=== PATIENT | male | born 1980 | race Asian ===

== ENCOUNTER 2018-07-24 07:44 | Emergency (ER) | payer SELFPAY ==
[2018-07-24 08:05] VITALS: BMI 30.4
--- NOTE | 2018-07-24 08:18 | PDOC ---
History of Present Illness <ElainaMiya - Last Filed: 07/24/18 11:34> - History of Present Illness Initial Comments: 07/24/18 10:13 This patient is a 37 year old male, with PMHx of seasonal asthma, who presents to the ED with his father for psychiatric evaluation. Patient states that he recently moved from the [facility] to [place] in March 2018. 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 He states that he has been having a hard time adjusting at work due to the culture shock. Pt is guarded and very evasive when asked what has been difficult for him. He admits that he often feels other people, especially at work, are trying to harm him. When speaking with patient s father (Dilip [phone]) he states that his son feels people are trying to harm him. Patient denies any plan to hurt himself or others however. Patients father states that prior to moving to [facility], his son lived alone and was perfectly fine in the [facility]. Patient is currently living with his coworkers brother. His coworker (Vasile [phone]) notes that the pt has been having some issues at work. He states that the pt constantly repeats I cant do this while at work and claims that no one understands him. He also was paranoid that a certain long distance billing operator at work was trying to harm him while they were alone in the elevator. He also states that the patient is very paranoid while on the train. He reports an episode where the pt's supervisor food checkers and cashiers handed him a timesheet to fill out and the patient repeated "I can't do this" and began to weep at work. His coworker also notes that the patient is often fixated on the other physical therapists patients, notably kept repeating a concern about a patients shoes to a coworker. His coworker states that the pt has not mentioned any plans to kill himself but he is worried that he may eventually do something based on the unusual behavior he has been exhibiting. He denies fevers, chills, cp, sob, headaches, visual issues, weakness/numbness, abd pain, LE edema, urinary sxs, stiff neck, rashes. Denies recent EtOH use of recreational drugs. <Sudheer Gastelum - Last Filed: 07/24/18 18:56> - General Chief Complaint: Suicidal Stated Complaint: Psychiatric Time Seen by Provider: 07/24/18 08:17 Past History <Miya Delaney - Last Filed: 07/24/18 11:34> - Past Medical History Asthma: Yes COPD: No - Surgical History Appendectomy: No Cardiac Surgery: No - Suicide/Smoking/Psychosocial Hx Smoking History: Never smoked Have you smoked in the past 12 months: No Information on smoking cessation initiated: No Hx Alcohol Use: No Drug/Substance Use Hx: No Substance Use Type: None <Sudheer Gastelum - Last Filed: 07/24/18 18:56> - Past Medical History Allergies/Adverse Reactions: Allergies Allergy/AdvReac Type Severity Reaction Status Date / Time No Known Allergies Allergy Verified 07/24/18 07:49 Home Medications: Ambulatory Orders NK [No Known Home Medication] 07/24/18 Review of Systems - Review of Systems Comments:: 07/24/18 10:22 GENERAL/CONSTITUTIONAL: No fever or chills. No weakness. HEAD, EYES, EARS, NOSE AND THROAT: No change in vision. No ear pain or discharge. No sore throat. GASTROINTESTINAL: No nausea, vomiting, diarrhea or constipation. GENITOURINARY: No dysuria, frequency, or change in urination. CARDIOVASCULAR: No chest pain or shortness of breath. RESPIRATORY: No cough, or hemoptysis. MUSCULOSKELETAL: No joint or muscle swelling or pain. No neck or back pain. SKIN: No rash NEUROLOGIC: No headache, vertigo, loss of consciousness, or change in strength/ sensation. ENDOCRINE: No increased thirst. No abnormal weight change. HEMATOLOGIC/LYMPHATIC: No anemia, easy bleeding, or history of blood clots. ALLERGIC/IMMUNOLOGIC: No hives or skin allergy. <Sudheer Gastelum - Last Filed: 07/24/18 18:56> *Physical Exam - Vital Signs Last Vital Signs Temp Pulse Resp BP Pulse Ox 98.0 F 76 18 116/79 99 07/24/18 11:19 07/24/18 11:19 07/24/18 11:19 07/24/18 11:19 07/24/18 11:19 <Miya Delaney - Last Filed: 07/24/18 11:34> - Vital Signs Last Vital Signs Temp Pulse Resp BP Pulse Ox 98.4 F 82 16 118/75 98 07/24/18 07:49 07/24/18 07:49 07/24/18 07:49 07/24/18 07:49 07/24/18 07:49 - Physical Exam Comments: 07/24/18 10:23 GENERAL: Awake, alert, and fully oriented, in no acute distress HEAD: No signs of trauma EYES: PERRLA, EOMI, sclera anicteric, conjunctiva clear ENT: Auricles normal inspection, hearing grossly normal, nares patent, oropharynx clear without exudates. Moist mucosa NECK: Normal ROM, supple, no lymphadenopathy, JVD, or masses LUNGS: Breath sounds equal, clear to auscultation bilaterally. No wheezes, and no crackles HEART: Regular rate and rhythm, normal S1 and S2, no murmurs, rubs or gallops ABDOMEN: Soft, nontender, normoactive bowel sounds. No guarding, no rebound. No masses EXTREMITIES: Normal range of motion, no edema. No clubbing or cyanosis. No cords , erythema, or tenderness BACK: No midline spinal tenderness in cervical/thoracic/lumbar region NEUROLOGICAL: Normal speech, cranial nerves intact, negative pronator drift, 5/ 5 strength in all 4 extremities, normal sensation to light touch in all 4 extremities, normal cerebellar exam, normal gait, normal reflexes and tone SKIN: Warm, Dry, normal turgor, no rashes or lesions noted. PSYCH: +paranoia, no passive or active SI/HI <Sudheer Gastelum - Last Filed: 07/24/18 18:56> Heart Score/ECG Review - [place] Comment: 07/24/18 09:54 Twelve-lead EKG was performed and reviewed by me. Normal sinus rhythm, rate 72. Normal axis. J-point elevations in leads I, II, V3-V6 consistent with early repolarization. <Sudheer Gastelum - Last Filed: 07/24/18 18:56> ED Treatment Course - LABORATORY CBC & Chemistry Diagram: 07/24/18 09:46 07/24/18 09:46 - ADDITIONAL ORDERS Additional order review: Laboratory Results 07/24/18 07/24/18 07/24/18 09:46 09:46 09:37 Sodium 140 Potassium 4.2 Chloride 101 Carbon Dioxide 30 Anion Gap 9 BUN 15 Creatinine 1.1 Creat Clearance w eGFR > 60 Random Glucose 92 Calcium 9.2 Total Bilirubin 1.4 H AST 18 ALT 33 Alkaline Phosphatase 85 Troponin I < 0.02 Total Protein 8.0 Albumin 4.6 TSH 0.94 Salicylates < 1.7 L Acetaminophen < 10 L 07/24/18 09:46 RBC 5.18 MCV 89.6 MCHC 33.3 RDW 13.2 MPV 7.2 L Neutrophils % 80.7 Lymphocytes % 12.7 Monocytes % 6.0 Eosinophils % 0.4 Basophils % 0.2 <Miya Delaney - Last Filed: 07/24/18 11:34> - LABORATORY CBC & Chemistry Diagram: 07/24/18 09:46 07/24/18 09:46 <Sudheer Gastelum - Last Filed: 07/24/18 18:56> Medical Decision Making - Medical Decision Making 07/24/18 09:48 37-year-old male with no significant past medical or surgical history presents to the emergency Department with paranoid delusions for approx 1 month. Vitals wnl. Exam wnl. Will r/o medical cause of symptoms including TSH, CTH, drug screen and reassess. Likely depression or adjustment d/o with psychosis if medical workup negative. Case has been discussed with Dr. Lockett who will evaluate pt. Pt has been on 1:1 watch throughout ED stay. 07/24/18 11:55 Medical work up completely negative including labs, EKG, XR, CTH Dr. Lockett evaluating is pending We have left him a voicemail at this time 07/24/18 13:[address] Lockett, will return to reassess pt Case discussed with our ED case management social worker Paw 07/24/18 13:45 Dr. Lockett recommends we 2PC pt given pt is having paranoia and had passive SI according to a co-worker. 2PC forms completed by myself and Dr. Lockett SW is calling to look for a inpt psych bed Dr. Lockett recommends abilify 5mg PO which has been ordered 07/24/18 15:04 [facility] has 5 male beds available. They are reviewing pt's labs that have been faxed over Will call us back re bed availability 07/24/18 16:19 Pt stable, well appearing On watch Awaiting [facility] review of diagnostics 07/24/18 18:19 [facility] transfer center requests we fax over cbc, ekg, and utox They were faxed to transfer center staff fax ([phone]) They will call us back re bed avialability 07/24/18 18:54 No word yet from [facility] Pt signed out to evening attending <Sudheer Gastelum - Last Filed: 07/24/18 18:56> *DC/Admit/Observation/Transfer - Attestations Scribe Attestion: 07/24/18 11:34 Documentation prepared by Miya Delaney, acting as medical screener for Sudheer Gastelum MD. <Miya Delaney - Last Filed: 07/24/18 11:34> - Attestations Physician Attestion: 07/24/18 18:26 I, Dr. Sudheer Gastelum MD, attest that this document has been prepared under my direction and personally reviewed by me in its entirety. I further attest, that it accurately reflects all work, treatment, procedures and medical decision -making performed by me. <Sudheer Gastelum - Last Filed: 07/24/18 18:56> Diagnosis at time of Disposition: Suicidal ideations, Paranoid behavior - Discharge Dispostion Disposition: TRANSFER ACUTE CARE/OTHER HOSP Condition at time of disposition: Stable - Referrals - Patient Instructions - Post Discharge Activity Forms/Work/School Notes: My Personal Safety Plan
[2018-07-24 10:18] LABS: BASO % 0.2 % (0-2.0); EOS % 0.4 % (0-4.5); HEMATOCRIT 46.4 % (35.4-49); HEMOGLOBIN 15.5 GM/dL (11.7-16.9); LYMPH % 12.7 % (8-40); MCH 29.8 pg (25.7-33.7); MCHC 33.3 g/dl (32.0-35.9); MEAN CELL VOLUME 89.6 fl (80-96); MEAN PLT VOLUME 7.2 fl (7.5-11.1); NEUT % 80.7 % (42.8-82.8); PLATELET COUNT 223 K/MM3 (134-434); RBC 5.18 M/mm3 (4.00-5.60); RDW 13.2 % (11.9-15.9); WHITE BLOOD COUNT 13.3 K/mm3 (4.0-10.0)
[2018-07-24 10:51] LABS: ALBUMIN 4.6 g/dl (3.4-5.0); ALK PHOS 85 U/L (45-117); ANION GAP 9 MMOL/L (8-16); BILIRUBIN,TOTAL 1.4 mg/dL (0.2-1); BLOOD UREA NITROGEN 15 mg/dL (7-18); CALCIUM 9.2 mg/dL (8.5-10.1); CHLORIDE 101 mmol/L (98-107); CO2 30 mmol/L (21-32); CREATININE 1.1 mg/dL (0.55-1.3); GLUCOSE,RANDOM 92 mg/dL (74-106); POTASSIUM 4.2 mmol/L (3.5-5.1); SGOT/AST 18 U/L (15-37); SGPT/ALT 33 U/L (13-61); SODIUM 140 mmol/L (136-145)
[2018-07-24 11:35] LABS: URINE APPEARANCE CLEAR; URINE BILIRUBIN NEGATIVE (<2.0 mg/dL); URINE COLOR LTYELLOW; URINE GLUCOSE (UA) NEGATIVE (NEGATIVE); URINE KETONE NEGATIVE (NEGATIVE); URINE LEUK ESTERASE NEGATIVE (NEGATIVE); URINE NITRITE NEGATIVE (NEGATIVE); URINE PROTEIN NEGATIVE (NEGATIVE); URINE UROBILINOGEN NEGATIVE mg/dL (0.2-1.0)
[2018-07-24 11:45] LABS: COCAINE, UR NEGATIVE ng/ml (CUTOFF=300); METHADONE, UR NEGATIVE ng/ml (CUTOFF=300); OPIATES, URI NEGATIVE ng/ml (CUTOFF=300); PHENCYCLIDINE,URINE NEGATIVE ng/ml (CUTOFF=25); URINE AMPHETAMINES NEGATIVE ng/ml (CUTOFF=500); URINE BARBITURATES NEGATIVE ng/ml (CUTOFF=200); URINE BENZODIAZEPINES NEGATIVE ng/ml (CUTOFF=200)
--- NOTE | 2018-07-24 13:46 | CON.PSY ---
Psychiatry Consult Chief Complaint: 37 byear old [place] male [facility] and been working as a Phusical Therapist. Apparantly he has become more depressed and been complaining about co worjers interfering with his work and he3 also made passive sicidal threats. Friend called Father rod lives in [place] who brought him to ER. Symptoms: reports: Depressed Mood, Disorganized/Disruptive Thoughts, Delusions, Paranoia - Previous Psychiatric Treatment Outpatient: None Inpatient: None - Previous Substance Abuse Treatment Outpatient: None Inpatient: None - Allergies Allergies: Allergies Allergy/AdvReac Type Severity Reaction Status Date / Time No Known Allergies Allergy Verified 07/24/18 07:49 - Current Living Status Usual Living Arrangement: Alone - Current Mental Status Evaluation Appearance: Disheveled Attitude: Guarded - Affect Affect: Constrictive Appropriateness: Not Appropriate - Mood Mood: Depressed - Speech/Language Expressive: Delayed - Psychomotor Activity Psychomotor Activity: Slowed - Thought Process Thought Process: Circumstantial - Thought Content Hallucinations: Absent Delusions: Present Type: Persectory - Self Perception Self Perception: No Impairment - Cognition Attention: Alert Orientation: Time Memory, Immediate Recall: Intact Memory, Short Term: 3/3 Memory, Remote with Promptin/3 - Concentration Serial Sevens Intact: No Simple Calculations Intact: Yes - Abstraction Proverb Interpretation: Intact Judgement: Minimally Impaired - Insight Insight: Impaired - Homicidal Ideation Homicidal Ideation: Yes (NOn concrete pl;ans) Assessment/Plan 1) Abilify 5mg po od,. 2) IN patient Psych admission to stabilize Psychosis.
[2018-07-24] MEDS ORDERED: ARIPiprazole 5 MG TABLET (FP) PO ONE (13:47)
[2018-07-24] MEDS ORDERED: ARIPiprazole 5 MG TABLET (FP) ONE (14:02)
--- NOTE | 2018-07-24 21:42 | PDOC ---
*Physical Exam - Vital Signs Last Vital Signs Temp Pulse Resp BP Pulse Ox 98 F 92 H 17 138/88 98 07/24/18 18:51 07/24/18 18:51 07/24/18 18:51 07/24/18 18:51 07/24/18 18:51 - Physical Exam Comments: 07/25/18 00:00 pt resting comfortably in NAD ED Treatment Course - LABORATORY CBC & Chemistry Diagram: 07/24/18 09:46 07/24/18 09:46 - ADDITIONAL ORDERS Additional order review: Laboratory Results 07/24/18 07/24/18 07/24/18 09:46 09:46 09:46 Sodium Potassium Chloride Carbon Dioxide Anion Gap BUN Creatinine Creat Clearance w eGFR Random Glucose Calcium Total Bilirubin AST ALT Alkaline Phosphatase Troponin I < 0.02 Total Protein Albumin TSH 0.94 Urine Color Ltyellow Urine Appearance Clear Urine pH 7.0 Ur Specific [place] 1.011 Urine Protein Negative Urine Glucose (UA) Negative Urine Ketones Negative Urine Blood Negative Urine Nitrite Negative Urine Bilirubin Negative Urine Urobilinogen Negative Ur Leukocyte Esterase Negative Salicylates Opiates Screen Negative Methadone Screen Negative Acetaminophen Barbiturate Screen Negative Phencyclidine Screen Negative Ur Amphetamines Screen Negative MDMA (Ecstasy) Screen Negative Benzodiazepines Screen Negative Cocaine Screen Negative U Marijuana (THC) Screen Negative 07/24/18 07/24/18 09:46 09:37 Sodium 140 Potassium 4.2 Chloride 101 Carbon Dioxide 30 Anion Gap 9 BUN 15 Creatinine 1.1 Creat Clearance w eGFR > 60 Random Glucose 92 Calcium 9.2 Total Bilirubin 1.4 H AST 18 ALT 33 Alkaline Phosphatase 85 Troponin I Total Protein 8.0 Albumin 4.6 TSH Urine Color Urine Appearance Urine pH Ur Specific [place] Urine Protein Urine Glucose (UA) Urine Ketones Urine Blood Urine Nitrite Urine Bilirubin Urine Urobilinogen Ur Leukocyte Esterase Salicylates < 1.7 L Opiates Screen Methadone Screen Acetaminophen < 10 L Barbiturate Screen Phencyclidine Screen Ur Amphetamines Screen MDMA (Ecstasy) Screen Benzodiazepines Screen Cocaine Screen U Marijuana (THC) Screen 07/24/18 09:46 RBC 5.18 MCV 89.6 MCHC 33.3 RDW 13.2 MPV 7.2 L Neutrophils % 80.7 Lymphocytes % 12.7 Monocytes % 6.0 Eosinophils % 0.4 Basophils % 0.2 - Medications Given in the ED: ED Medications Discontinued Medications Generic Name Dose Route Start Last Admin Trade Name William PRN Reason Stop Dose Admin Aripiprazole 5 mg 07/24/18 13:47 07/24/18 14:12 Abilify PO 07/24/18 13:48 5 mg ONCE ONE Administration Medical Decision Making - Medical Decision Making 07/24/18 21:32 Pt signed out after 2PC for transfer to [facility] 07/24/18 21:[address] [facility] - awaiting acceptance by a physician at [facility] 07/25/18 00:[address] [facility] - pt accepted to unit A2 in the pschiatric unit by Dr. Velasco pt updated on the plan 07/25/18 00:03 phone call placed to Mr Maciel the patient father at the request of the patient who is aware of the transfer *DC/Admit/Observation/Transfer Diagnosis at time of Disposition: Suicidal ideations, Paranoid behavior - Discharge Dispostion Disposition: TRANSFER ACUTE CARE/OTHER HOSP Condition at time of disposition: Stable - Referrals - Patient Instructions - Post Discharge Activity Forms/Work/School Notes: My Personal Safety Plan - Transfer to Acute Care Facility Receiving Facility: [facility]. Accepting Physician:: Dr. Velasco
[2018-07-25 01:23] VITALS: BP 119/73; PULSE 78; TEMP 98.1
--- NOTE | 2018-07-25 11:49 | EKG ---
Test Reason : Blood Pressure : / mmHG Vent. Rate : 072 BPM Atrial Rate : 072 BPM P-R Int : 186 ms QRS Dur : 090 ms QT Int : 376 ms P-R-T Axes : 065 036 006 degrees QTc Int : 411 ms NORMAL SINUS RHYTHM NORMAL ECG NO PREVIOUS ECGS AVAILABLE Confirmed by VIKTORIYA GONZALEZ MD ([id number]) on 07/25/2018 11:48:41 AM Referred By: Confirmed By:VIKTORIYA GONZALEZ MD
== END 2018-07-25 02:07 | disposition short-term general hospital (02) ==
LOC: JER 07:44
DX: R45.851 Suicidal ideations (principal); F22 Delusional disorders; J30.2 Other seasonal allergic rhinitis
CPT/HCPCS: 36415; 70450-TC; 71045-TC-FY; 80053; 80307; 81003; 84443; 84484; 85025; 87086; 93005; 93010; 99285-25